=== PATIENT | female | born 1995 | race Caucasian/White ===

== ENCOUNTER 2024-02-23 22:59 | Emergency (ER) | payer OTHER, SELFPAY ==
[2024-02-23 23:15] VITALS: BP 142/96
[2024-02-23] MEDS: ZOFRAN 4 MG IV (23:39)
[2024-02-23] MEDS: NSS 1000 IV (23:39)
[2024-02-23 23:45] VITALS: BMI 30.5
--- NOTE | 2024-02-23 23:48 | EDRN ---
Pt sitting in tripod position on stretcher dry heaving into emesis bag when this RN entered room. Pt has been on wellbutrin XL for 3 years. Pt says she went to a weight loss doctor because she wants to get and was told she should lose
weight first. Pt prescribed naltrexone 50mg tablet - take half tablet daily. Pt says she was told with the wellbutrin, the naltrexone would curb binge eating. Pt took the first dose of naltrexone this morning at 0830 and has had
nausea/vomiting/dry heaving since 0930. Pt has been forcing herself to drink water because she says she vomits afterwards and feels better for 5-10 minutes. Pt ate 2 ice cubes and says she vomited them up also. No cp, sob, fever/chills/cough,
urinary symptoms, constipation/diarrhea.
[2024-02-23 23:52] LABS: % Basophils 0.3 % (0-2); % Immature Granulocytes 0.3 % (0-0.5); % Lymphocytes 11.9 % (20.5-51.1); % Monocytes 2.6 % (1.7-9.3); % Neutrophils 84.9 % (42.2-75.2); Absolute Lymphocytes 1.2 10^3/uL (1.2-3.4); Absolute Monocytes 0.3 10^3/uL (0.1-0.6); Absolute Neutrophils 8.7 10^3/uL (1.4-6.5); Hematocrit 45.5 % (37.0-47.0); Hemoglobin 16.4 g/dL (12.0-16.0); Mean Corpuscular Hgb 30.6 pg (27.0-31.0); Mean Corpuscular Volume 84.9 fL (81.0-99.0); Mean Platelet Volume 11.8 fL (7.4-10.4); Nucleated Red Blood Cells % 0 %; Platelet Count 226 10^3/uL (130-400); Red Blood Cell Count 5.36 10^6/uL (4.20-5.40); Red Cell Dist. Width 11.8 % (11.5-14.5); White Blood Cell Count 10.3 10^3/uL (4.8-10.8)
[2024-02-24 00:06] LABS: HCG, Serum Qualitative Screen Negative
[2024-02-24 00:10] LABS: ALT (SGPT) 19 U/L (0-35); AST (SGOT) 25 U/L (14-36); Albumin 4.7 g/dl (3.5-5.0); Alkaline Phosphatase 69 U/L (38-126); Blood Urea Nitrogen 13 mg/dl (7-17); Carbon Dioxide 24 mmol/L (22-30); Chloride 105 mmol/L (98-107); Estimated Creatinine Clearance 118 ml/min; Glucose 119 mg/dl (70-99); Lipase 49 U/L (23-300); Potassium 3.9 mmol/L (3.5-5.1); Sodium 135 mmol/L (135-145); Total Bilirubin 0.7 mg/dl (0.2-1.3); Total Protein 7.9 g/dl (6.3-8.2); eGFR > 60.00
[2024-02-24 00:42] VITALS: BP 133/79
[2024-02-24] MEDS: ZOFRAN 4 MG IV (01:16)
--- NOTE | 2024-02-24 01:46 | ED.GENMED ---
History of Present Illness
General
Chief Complaint: Abdominal Pain
Source: patient
Exam Limitations: none
Time Seen by Provider: 02/23/24 23:20
Nursing documentation reviewed up to this point in time: agreed with
Travel History
Have you had any contact with someone who has COVID-19?: No
Do you have any symptoms of coronavirus? Fever > 100 degrees, chills, cough, shortness of breath, sore throat, loss of taste or smell, muscle aches, or headache?: No
History of Present Illness
History of Present Illness:
Patient to ED with complaint of vomiting. States she is seeing a weight loss specialist. SHe was prescribed Naltrexone to take along with her Wellbutrin. Took meds this AM and has been vomiting since. NO abdominal pain. Brought to ED by chelsey
for eval. No fever/chills. No prior history of same.
Past History
Past History
ED Past Medical History: None
ED Past Surgical History: None
Review of Systems
Review of Systems
Allergies reviewed?: Yes
All Other Systems: ROS reviewed and negative except as documented in HPI and ROS
Constitutional: Reports no symptoms
EENT: Reports no symptoms
Respiratory: Reports no symptoms
Cardiac: Reports no symptoms
ABD/GI: Reports nausea and vomiting
: Reports no symptoms
Musculoskeletal: Reports no symptoms
Skin: Reports no symptoms
Neurological: Reports no symptoms
Psychiatric: Reports no symptoms
Phy Exam
General Physical Exam
General Presentation: well appearing and mild distress
General age: appears stated age
General Skin: warm and dry
General Habitus: normal
General Mental: alert
Gastrointestinal Exam
Gastrointestinal Exam: non tender, soft and non distended
Musculoskeletal Exam
Musculoskeletal Exam: full ROM and neuro vasc intact
Skin Exam
Skin Exam: normal color, warm/dry and no rash
Psychiatric Exam
Psychiatric Exam: normal mood/affect
Course
Orders/Labs/Results
Orders:
Orders
02/23/24 23:33
Urinalysis Reflex To Culture Urgent
0.9% Sodium Chloride 1000 ml [Nss] 1,000 ml IV BOLUS
Ondansetron Injectable [Zofran] 4 mg IV NOW STA
Test Result ONCE
02/23/24 23:40
Complete Blood Count/With Diff Urgent
Comprehensive Metabolic Panel Urgent
HCG, Serum Qualitative Screen Urgent
Lipase Urgent
02/24/24 01:04
Ondansetron Injectable [Zofran] 4 mg IV NOW STA
Abnormal Lab Results
02/23/24
23:40
Hgb 16.4 H g/dL
(12.0-16.0)
MPV 11.8 H fL
(7.4-10.4)
Absolute Neuts (auto) 8.7 H 10^3/uL
(1.4-6.5)
Neutrophils % 84.9 H %
(42.2-75.2)
Lymphocytes % 11.9 L %
(20.5-51.1)
Glucose 119 H mg/dl
(70-99)
02/23/24 23:40
02/23/24 23:40
Vital Signs
Initial and Last Documented VS:
Initial Vital Signs
Temp Pulse Resp BP Pulse Ox
98.2 F 91 18 142/96 100
02/23/24 23:15 02/23/24 23:15 02/23/24 23:15 02/23/24 23:15 02/23/24 23:15
Last Documented Vital Signs
Temp Pulse Resp BP Pulse Ox
98.2 F 87 16 133/79 97
02/23/24 23:15 02/24/24 00:42 02/24/24 00:42 02/24/24 00:42 02/24/24 00:42
*Critical Care Note
Total Time (30-74mins, 75-104mins- exclusive of procedures): Not Applicable
Update Note
Update Note:
Improved with IVFmaury. She is discharged home. Recommend stopping naltrexone for weight loss. Follow up with PCP on Monday.
ED Attending Note
-
Portions of this chart may have been created with voice recognition software.� Occasional wrong word or��sound alike� substitutions may have occurred due to the inherent limitations of voice recognition software.
Discharge Plan
Departure
Patient Disposition: Home (Routine Discharge)
Date of Disposition: 02/24/24
Time of Disposition: 01:42
Patient with high blood pressure during this ER visit?: No
Condition: Good
Covid-19: Not Applicable
Discharge Problem:
Medication adverse effect, Acute vomiting
Instructions: Clear Liquid Diet, Nausea and Vomiting, Adult (DC)
Prescriptions:
New
ondansetron 4 mg tablet,disintegrating
4 mg PO Q8H PRN (Reason: nausea and vomiting) 3 Days Qty: 10 0RF
No Action
naltrexone 50 mg Tablet
25 mg PO DAILY
Patient Comments:
this was pt's first dose
bupropion HCl [Wellbutrin XL] 300 mg Tablet Extended Release 24 Hr
300 mg PO DAILY
Referrals:
Tri Whalen MD [Family Provider] - Follow up in 2-3 days
Activity Restrictions/Additional Instructions:
Stop Naltrexone
Interventions
Interventions:
*Risk Screen - Suicide Last Done: 02/23/24 23:45
*General Assessment Last Done: 02/23/24 23:45
*Neglect/Abuse Screening Last Done: 02/23/24 23:45
ED- Fall Risk Assessment Last Done: 02/23/24 23:45
*ED COVID-19 Vaccine History Last Done: 02/23/24 23:22
NI-Qljcen-Qstkehcbes Assessment Last Done: 02/23/24 23:45
Discharge Date and Time
Print Language: SWEDISH
== END 2024-02-24 01:56 | disposition home or self-care (01) ==
LOC: EMR 22:59
PROVIDERS: Nurse Practitioner; EMERGENCY PHYSICIAN Emergency Medicine; FAMILY PHYSICIAN Family Medicine
DX: R11.2 Nausea with vomiting, unspecified (principal); R10.9 Unspecified abdominal pain; T50.7X5A Adverse effect of analeptics and opioid receptor antagonists, initial encounter; T43.295A Adverse effect of other antidepressants, initial encounter; K58.9 Irritable bowel syndrome, unspecified; F32.A Depression, unspecified
CPT/HCPCS: 99284; 96374; 96361; 96376; 80053; 83690; 84703; 85025

== ENCOUNTER → 2024-09-17 15:43 | Outpatient (REF) | payer OTHER, SELFPAY | LOC: RAD 15:43 | PROVIDERS: ATTENDING PHYSICIAN Obstetrics & Gynecology; FAMILY PHYSICIAN Family Medicine | DX: O26.859 Spotting complicating pregnancy, unspecified trimester (principal) | CPT/HCPCS: 76801 ==

== ENCOUNTER 2025-04-30 19:31 | Inpatient (IN) | payer OTHER, SELFPAY ==
[2025-04-30 20:25] VITALS: BP 143/90; BMI 37.6
[2025-04-30 20:30] LABS: Hematocrit 40.0 % (37.0-47.0); Hemoglobin 14.5 g/dL (12.0-16.0); Mean Corp Hgb Conc. 36.3 g/dL (33.0-37.0); Mean Corpuscular Volume 87.1 fL (81.0-99.0); Nucleated Red Blood Cells % 0 %; Platelet Count 158 10^3/uL (130-400); Red Cell Dist. Width 12.8 % (11.5-14.5)
[2025-04-30 20:48] LABS: ALT (SGPT) 26 U/L (0-35); AST (SGOT) 24 U/L (14-36); Albumin 3.4 g/dl (3.5-5.0); Alkaline Phosphatase 130 U/L (38-126); Blood Urea Nitrogen 13 mg/dl (7-17); Calcium 8.5 mg/dl (8.4-10.2); Carbon Dioxide 19 mmol/L (22-30); Chloride 109 mmol/L (98-107); Estimated Creatinine Clearance > 125 ml/min; Glucose 91 mg/dl (70-99); Potassium 4.1 mmol/L (3.5-5.1); Sodium 133 mmol/L (135-145); Total Protein 6.3 g/dl (6.3-8.2); eGFR > 60.00
[2025-05-01] MEDS: LR 1000 IV ×2 (01:45→03:28)
[2025-05-01] MEDS: FENTANYL/BUPIVACAINE 100 EPIDURAL (02:51)
[2025-05-01] MEDS: SUBLIMAZE 100 MCG EPIDURAL (02:51)
[2025-05-01] MEDS: PITOCIN 30 UNITS/NSS 500 ML IV (04:28)
[2025-05-01] MEDS: ZOFRAN 4 MG IV (04:58)
[2025-05-01] MEDS: COLACE 100 MG PO (19:47)
[2025-05-02 04:29] LABS: Hematocrit 34.4 % (37.0-47.0); Hemoglobin 12.2 g/dL (12.0-16.0)
[2025-05-02] MEDS: MOTRIN 600 MG PO ×3 (07:55→23:39)
[2025-05-02] MEDS: COLACE 100 MG PO ×2 (07:55→20:13)
[2025-05-02] MEDS: PRENATAL PLUS 1 TABLET PO (07:56)
[2025-05-03] MEDS: PRENATAL PLUS 1 TABLET PO (09:32)
[2025-05-03] MEDS: COLACE 100 MG PO (09:32)
[2025-05-03] MEDS: MOTRIN 600 MG PO (12:05)
[2025-05-06 17:15] LABS: Syphilis/T. pallidum Ab Reflex Negative (Negative)
== END 2025-05-03 16:16 | disposition home or self-care (01) | DRG 807 ==
LOC: LDRP 19:31
PROVIDERS: Obstetrics & Gynecology; ADMITTING PHYSICIAN Student in an Organized Health Care Education/Training Program; FAMILY PHYSICIAN Family Medicine
PROC: 0HQ9XZZ Repair Perineum Skin, External Approach (ICD-10-PCS; 2025-05-01)
PROC: 0UQMXZZ Repair Vulva, External Approach (ICD-10-PCS; 2025-05-01)
PROC: 10E0XZZ Delivery of Products of Conception, External Approach (ICD-10-PCS; 2025-05-01)
DX: O69.81X0 Labor and delivery complicated by cord around neck, without compression, not applicable or unspecified (principal); Z37.0 Single live birth; O99.214 Obesity complicating childbirth; O77.0 Labor and delivery complicated by meconium in amniotic fluid; O70.0 First degree perineal laceration during delivery; Z3A.39 39 weeks gestation of pregnancy; E66.9 Obesity, unspecified
CPT/HCPCS: 36415; 59025; 80053; 82570; 84156; 85014; 85018; 85025; 86780; 86850; 86900; 86901; 88307

== ENCOUNTER → 2025-09-03 14:43 | Outpatient (REF) | payer OTHER, SELFPAY | LOC: HWRAD 14:43 | PROVIDERS: ATTENDING PHYSICIAN Family Medicine | DX: R59.1 Generalized enlarged lymph nodes (principal) | CPT/HCPCS: 76536 ==

== ENCOUNTER → 2025-09-18 12:59 | Outpatient (REF) | payer OTHER, SELFPAY | LOC: RAD 12:59 | PROVIDERS: ATTENDING PHYSICIAN Family Medicine | DX: R22.1 Localized swelling, mass and lump, neck (principal) | CPT/HCPCS: 70491; Q9967 ==

== ENCOUNTER → 2025-09-23 11:19 | Outpatient (REF) | payer OTHER, SELFPAY | LOC: RAD 11:19 | PROVIDERS: ATTENDING PHYSICIAN Family Medicine | DX: R22.1 Localized swelling, mass and lump, neck (principal) | CPT/HCPCS: 71046 ==

== ENCOUNTER → 2025-10-10 06:56 | Outpatient (REF) | payer OTHER, SELFPAY ==
[2025-10-10 07:42] VITALS: BP 137/82; BP_SYST 78
[2025-10-10 09:05] VITALS: BP 130/86; BP_SYST 78
[2025-10-10 09:10] VITALS: BP 128/84; BP_SYST 86
[2025-10-10 09:15] VITALS: BP 127/86; BP_SYST 80
[2025-10-10 09:25] VITALS: BP 127/86
== END ==
LOC: RADI 06:56
PROVIDERS: ATTENDING PHYSICIAN Surgery; FAMILY PHYSICIAN Family Medicine
DX: C81.11 Nodular sclerosis Hodgkin lymphoma, lymph nodes of head, face, and neck (principal)
CPT/HCPCS: 38505; 76942; 88184; 88185; 88305; 88333; 88334; 88341; 88342; 99152; 99153